=== PATIENT | male | born 1955 | race Hispanic/Latino ===

== ENCOUNTER → 2019-04-13 | Outpatient (CLI) | payer MEDICARE, OTHER ==
--- NOTE | 2019-04-13 11:54 | Diagnostic Imaging Report ---
TECHNIQUE: Magnetic resonance imaging of the RIGHT KNEE was performed WITHOUT injected contrast. HISTORY: Right knee pain COMPARISON: None available. FINDINGS: LIGAMENTS AND TENDONS: ACL: Intact PCL: Intact Collateral ligaments: Intact Iliotibial band: Unremarkable Popliteal tendon: Intact Extensor mechanism: Intact JOINT: Menisci: Medial: Complex tear involving the body and posterior horn. Lateral: Intact Articular Cartilage: Medial Compartment: Diffuse high-grade cartilage loss with areas of full-thickness erosion and edema. Lateral Compartment: No focal defect. Patellofemoral Compartment: Regions of full-thickness cartilage loss involving the central trochlea. Joint Fluid: Joint effusion with synovitis. BONE: No focal or infiltrative bone marrow replacing abnormality. No acute fracture. SOFT TISSUES: Otherwise, unremarkable. IMPRESSION: Medial meniscus complex tearing with high-grade cartilage loss and subchondral edema. Small joint effusion with synovitis. Signed by: Dr. Efra Green M.D. on 04/13/2019 11:51 AM
== END ==
LOC: MRI 10:00
PROVIDERS: ATTEND Specialist
DX: S83.221A Peripheral tear of medial meniscus, current injury, right knee, initial encounter (principal); M75.121 Complete rotator cuff tear or rupture of right shoulder, not specified as traumatic